=== PATIENT | male | born 2000 ===

== ENCOUNTER 2020-12-17 10:34 | Emergency (ER) | payer OTHER ==
[~2020-12-17] VITALS: Ht 180.3 cm; Wt 95.5 kg
[2020-12-17 10:38] VITALS: Ht 180.3 cm; Wt 95.5 kg
[2020-12-17] MEDS ORDERED: VOLTAREN75 MG PO (11:29)
[2020-12-17] MEDS ORDERED: BACLOFEN20 M1 PO (11:29)
[2020-12-17 11:42] LABS: BACTERIA NONE SEEN HPF (NONE SEEN); SQUAMOUS EPITHELIAL RARE HPF (0-4); WHITE CELLS - URINE OCC HPF (0-1)
[2020-12-17 12:15] VITALS: BP 98/48
== END 2020-12-17 12:15 | disposition home or self-care (01) ==
LOC: D.ER 10:34
PROVIDERS: Family Medicine
DX: M54.5 Low back pain (principal)